=== PATIENT | female | born 1960 | race American Indian/Alaskan Native ===

== ENCOUNTER 2019-11-22 16:50 | Emergency (ER) | payer MEDICARE ==
--- NOTE | 2019-11-22 17:18 | Event Note ---
ED Screening Note Date of service: 11/22/19 Time: 17:13 ED Screening Note: 58 y/o female comes in for chest pain, head feels swollen. right arm. Had a fall on Thursday first time being seen. She is currently on pain management. She has a hx/o chronic pain. This initial assessment/diagnostic orders/clinical plan/treatment(s) is/are subject to change based on patients health status, clinical progression and re- assessment by fellow clinical providers in the ED. Further treatment and workup at subsequent clinical providers discretion. Patient/guardian urged not to elope from the ED as their condition may be serious if not clinically assessed and managed. Initial orders include:
--- NOTE | 2019-11-22 17:59 | XRay Report ---
CHEST 2 VIEWS INDICATION: chest pain and sob.. COMPARISON: None FINDINGS: Support devices: None. Heart: Within normal limits. Lungs/pleura: Minimal streaky right basilar atelectasis versus scarring with otherwise clear lungs. No pneumothorax. Additional findings: None. IMPRESSION: 1. Right lung finding as above. Otherwise unremarkable exam. Signer Name: Oliverio Simpson MD Signed: 11/22/2019 5:55 PM Workstation Name: [id number]
[2019-11-22 18:05] LABS: Basophils # (Auto) 0.1 K/mm3 (0.0-0.1); Basophils % (Auto) 1.1 % (0.0-1.8); Eosinophils % (Auto) 0.3 % (0.0-4.3); Hematocrit 41.5 % (30.3-42.9); Lymphocytes # (Auto) 2.4 K/mm3 (1.2-5.4); Lymphocytes % (Auto) 27.9 % (13.4-35.0); Mean Corpuscular HGB Conc 34 % (30-34); Mean Corpuscular Volume 89 fl (79-97); Monocytes # (Auto) 0.6 K/mm3 (0.0-0.8); Monocytes % (Auto) 7.4 % (0.0-7.3); Platelet Count 292 K/mm3 (140-440); Red Blood Count 4.66 M/mm3 (3.65-5.03); Red Cell Distribution Width 13.8 % (13.2-15.2)
[2019-11-22 18:33] LABS: Albumin 4.4 g/dL (3.9-5); BUN/Creatinine Ratio 10; Blood Urea Nitrogen 7 mg/dL (7-17); Hemolysis Index 97
--- NOTE | 2019-11-22 18:43 | Emergency Department Report ---
ED General Adult HPI - General Chief complaint: Chest Pain Stated complaint: CHEST PAIN, HEADACHE Time Seen by Provider: 11/22/19 17:13 Source: patient, RN notes reviewed Mode of arrival: Ambulatory Limitations: No Limitations - History of Present Illness Initial comments: Primary care doctor: [facility]; Dr. Sahu Cardiology: Dr. 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 This patient is not known to myself previously. She presents to the ER with 2 complaints. Her first complaint is chest wall pain. It is present since Thursday. It moves to the back. Today is Thursday. It worsens with eating and with palpation. It decreases with rest. There is no vomiting, diaphoresis, shortness of breath. Positive cough. Uncertain if she is having mucus production. Denies recent travel, recent surgeries, posterior leg pain and leg swelling. Is not taking aspirin or Plavix, secondary to GI bleed in the past. However, she reports that her tree shear operator in [place], where she was from, did not speci fically inform her or instruct her to hold aspirin and/or Plavix. Her second complaint is headache. The headache is frontal and bitemporal. The headache is intermittent since Thursday. The headache is not described as sudden or thunderclap in nature. It is not described as maximal intensity within an hour. It is not described as the most intense or worst headache of her life. There is no vomiting, no loss of vision, no focal extremity weakness and no numbness, there is no tinnitus. She feels like her bitemporal regions are "swollen." -: Gradual, days(s) Location: head, chest Quality: other Consistency: other Improves with: other Worsens with: other Associated Symptoms: other - Related Data Previous Rx's Medication Instructions Recorded Last Taken Type Acetaminophen [Non-Aspirin Extra 500 mg PO Q6HR PRN #30 tablet 11/23/19 Unknown Rx Strength] Famotidine [Pepcid] 20 mg PO BID #10 tablet 11/23/19 Unknown Rx Ibuprofen [Motrin] 600 mg PO Q8H PRN #30 tablet 02/12/20 Unknown Rx Metoclopramide [Reglan] 10 mg PO QID PRN #30 tablet 11/23/19 Unknown Rx Allergies Allergy/AdvReac Type Severity Reaction Status Date / Time No Known Allergies Allergy Unverified 11/22/19 16:59 ED Review of Systems ROS: Stated complaint: CHEST PAIN, HEADACHE Other details as noted in HPI Constitutional: malaise. denies: diaphoresis Eyes: denies: eye pain, vision change ENT: denies: congestion Respiratory: cough Cardiovascular: chest pain Gastrointestinal: denies: nausea, vomiting, hematemesis, melena, hematochezia Genitourinary: denies: dysuria Musculoskeletal: back pain, myalgia Neurological: headache. denies: weakness, paresthesias, confusion Hematological/Lymphatic: denies: easy bleeding ED Past Medical Hx - Past Medical History Previous Medical History?: Yes Hx Hypertension: Yes Hx Heart Attack/AMI: Yes (with stent placement) Hx COPD: Yes Additional medical history: high cholesterol - Surgical History Past Surgical History?: Yes Hx Coronary Stent: Yes - Social History Smoking Status: Current Some Day Smoker - Medications Home Medications: Home Medications Medication Instructions Recorded Confirmed Last Taken Type Acetaminophen [Non-Aspirin Extra 500 mg PO Q6HR PRN #30 tablet 11/23/19 Unknown Rx Strength] Famotidine [Pepcid] 20 mg PO BID #10 tablet 11/23/19 Unknown Rx Ibuprofen [Motrin] 600 mg PO Q8H PRN #30 tablet 11/23/19 Unknown Rx Metoclopramide [Reglan] 10 mg PO QID PRN #30 tablet 11/23/19 Unknown Rx ED Physical Exam - General Limitations: No Limitations General appearance: alert, anxious - Head Head exam: Present: atraumatic, normocephalic - Eye Eye exam: Present: normal appearance, PERRL, EOMI, other (Visual acuity intact to finger counting, color perception, reading at a close distance). Absent: nystagmus - ENT ENT exam: Present: normal exam, normal orophraynx, mucous membranes moist, normal external ear exam, other (There is note temporal tenderness. There is no mastoid tenderness. No vesicles are noted. Helices are nontender) - Neck Neck exam: Present: normal inspection, full ROM. Absent: tenderness, meningismus, lymphadenopathy, thyromegaly - Respiratory Respiratory exam: Present: normal lung sounds bilaterally, chest wall tenderness. Absent: respiratory distress, wheezes, rales, rhonchi, stridor - Cardiovascular Cardiovascular Exam: Present: normal rhythm, tachycardia, normal heart sounds. Absent: systolic murmur, diastolic murmur, rubs, gallop - GI/Abdominal GI/Abdominal exam: Present: soft. Absent: distended, tenderness, guarding, rebound, rigid, pulsatile mass - Extremities Exam Extremities exam: Present: normal inspection, full ROM, other (2+ pulses noted in the bilateral upper and lower extremities. There is no palpable cord. negative Homans sign. Muscular compartments are soft. The pelvis is stable.). Absent: pedal edema, calf tenderness - Back Exam Back exam: Present: normal inspection, full ROM. Absent: tenderness, CVA tenderness (R), CVA tenderness (L), paraspinal tenderness, vertebral tenderness - Neurological Exam Neurological exam: Present: alert, normal gait, other (There is no facial droop. The tongue is midline. Extraocular movements are intact bilaterally. There is 5 out of 5 strength in bilateral upper and lower extremities. Sensation is intact to light touch bilateral upper and lower extremities. There is no past- pointing. There is no pronator drift. There is normal [id number]. There is a normal gait.). Absent: motor sensory deficit - Psychiatric Psychiatric exam: Present: anxious - Skin Skin exam: Present: warm, dry, intact, normal color. Absent: rash ED Course Vital Signs 11/22/19 11/22/19 11/22/19 17:01 17:21 18:45 Temperature 99.0 F Pulse Rate 114 H 92 H Respiratory 18 16 Rate Blood Pressure 160/80 Blood Pressure 176/111 [Left] O2 Sat by Pulse 99 97 Oximetry 11/22/19 20:20 Temperature Pulse Rate 69 Respiratory 16 Rate Blood Pressure Blood Pressure 137/82 [Left] O2 Sat by Pulse 97 Oximetry - Reevaluation(s) Reevaluation #1: 11/22/19 20:56 Differential diagnosis, including but limited to: Costochondritis, GERD, gastritis, hiatal hernia, pneumonia, acute coronary syndrome, pulmonary embolism, migraine headache, tension headache, cluster headache, intracranial hemorrhage, structural intracranial disease Assessment and plan: 58-year-old female with 2 complaints Complaints #1, chest pain for 3 days. Troponin is negative x2. Tachycardia resolved. EKG nonspecifically abnormal, without prior for comparison. Given initial tachycardia, low-grade temperature, d-dimer ordered, found to be elevated, therefore, CT angiogram chest is ordered. However, patient is low risk pretest probability, and is unlikely to have a pulmonary embolism. Her car diovascular risk factor profile is reviewed and appreciated, as is her heart score, however, given unchanged EKG x2, troponin negative x2 in the context of 3 days of symptoms, the patient is unlikely to benefit from hospitalization for accelerated cardiac risk education. I contacted cardiology on-call, Dr. Mona Johnson, and we discussed the patient's history, physical, laboratory studies and EKG, and he agrees that the patient will be suitable to follow-up in the outpatient office within the next couple days, to complete a cardiac re- stratification, assuming that her ER work-up is unremarkable. We will treat the patient's symptoms. CT scan of the chest is pending at this time. Complaints #2, headache: GCS 15, NIH score of 0, nonfocal neurologic examination. Walking with a steady gait. No neck pain or neck stiffness, and headache is not sudden or thunderclap in nature. This is unlikely to be dangerous etiology of headache. However, given her reported history of blood clot on the brain, we will obtain CT scan of the brain to assess for structural abnormalities. Her exam and history at this point in time are not suggestive of large vessel occlusion, and given her benign examination, this is very unlikely to be venous sinus thrombosis. The history is not consistent with subarachnoid hemorrhage. We will treat her headache symptomatically. As per verbal report from nursing team, patient has already endorsed improvement in her pain symptoms. Reevaluation #2: 11/22/19 22:02 Tachycardia resolved. Patient feels improved. Unable to obtain 20-gauge IV access and antecubital fossa for CT angiogram. Therefore, nuclear medicine study will be ordered. Reevaluation #3: 11/22/19 23:50 Troponin is negative x3. Nuclear medicine study is pending interpretation and acquisition at this time Reevaluation #4: 11/23/19 01:25 Nuclear medicine study is low probability for pulmonary embolism. Patient re sting comfortably 4 hours, troponin negative x3, without clinical decompensation. Please note patient had a prolonged stay in the emergency room, as we were unable to obtain necessary 20-gauge IV access for angiogram acquisition, and the clinical technologist needed to be called in as a study was ordered after hours. Nevertheless, the patient is suitable to follow- up with an outpatient primary care doctor, and/or tree shear operator. ED Medical Decision Making - Lab Data Result diagrams: 11/22/19 17:54 11/22/19 17:54 Vital Signs 11/22/19 11/22/19 17:01 17:21 Temperature 99.0 F Pulse Rate 114 H Respiratory 18 Rate Blood Pressure 160/80 O2 Sat by Pulse 99 Oximetry Lab Results 11/22/19 11/22/19 Range/Units 17:54 17:54 WBC 8.5 (4.5-11.0) K/mm3 RBC 4.66 (3.65-5.03) M/mm3 Hgb 14.0 (10.1-14.3) gm/dl Hct 41.5 (30.3-42.9) % MCV 89 (79-97) fl MCH 30 (28-32) pg MCHC 34 (30-34) % RDW 13.8 (13.2-15.2) % Plt Count 292 (140-440) K/mm3 Lymph % (Auto) 27.9 (13.4-35.0) % [place] % (Auto) 7.4 H (0.0-7.3) % Eos % (Auto) 0.3 (0.0-4.3) % Baso % (Auto) 1.1 (0.0-1.8) % Lymph # 2.4 (1.2-5.4) K/mm3 [place] # 0.6 (0.0-0.8) K/mm3 Eos # 0.0 (0.0-0.4) K/mm3 Baso # 0.1 (0.0-0.1) K/mm3 Seg Neutrophils % 63.3 (40.0-70.0) % Seg Neutrophils # 5.4 (1.8-7.7) K/mm3 Sodium 143 (137-145) mmol/L Potassium 4.2 (3.6-5.0) mmol/L Chloride 103.6 (98-107) mmol/L Carbon Dioxide 22 (22-30) mmol/L Anion Gap 22 mmol/L BUN 7 (7-17) mg/dL Creatinine 0.7 (0.7-1.2) mg/dL Estimated GFR > 60 ml/min BUN/Creatinine Ratio 10 % Glucose 88 (65-100) mg/dL Calcium 10.0 (8.4-10.2) mg/dL Total Bilirubin 0.30 (0.1-1.2) mg/dL Alkaline Phosphatase 111 (35-129) units/L Total Protein 8.3 H (6.3-8.2) g/dL Albumin 4.4 (3.9-5) g/dL Albumin/Globulin Ratio 1.1 % - EKG Data -: EKG Interpreted by Ut EKG shows normal: sinus rhythm Rate: normal - EKG Data When compared to previous EKG there are: previous EKG unavailable 11/22/19 20:59 There is no prior EKG available for comparison. EKG #1 shows a sinus tachycardia, with a normal axis, the QTC is 427 ms, there is left ventricular hypertrophy, there is atrial enlargement, nonspecific T wave abnormalities, no prior for comparison, not a STEMI EKG #2 shows a sinus rhythm, 81 bpm, there is a normal axis, the QTc is 445 ms, there is left ventricular hypertrophy, it is not consistent with a STEMI. - Radiology Data Radiology results: report reviewed, image reviewed Print Report Referring Physician: ANTHONY AYALA Patient Name: TYREL HOUSTON Date of : 1960 Sex: Female Report Date: 2019-11-22 Report Status: Finalized Findings [address] [address] XRay Report Signed Patient: TYREL HOUSTON MR#: [id number] : 1960 Acct:[id number] Age/Sex: 58 / F ADM Date: 11/22/19 Loc: ED Attending Dr: Ordering Physician: ALEXANDRA CRUZ Date of Service: 11/22/19 Procedure(s): XR chest routine 2V Accession Number(s): [id number] cc: ALEXANDRA CRUZ Fluoro Time In Minutes: CHEST 2 VIEWS INDICATION: chest pain and sob.. COMPARISON: None FINDINGS: Support devices: None. Heart: Within normal limits. Lungs/pleura: Minimal streaky right basilar atelectasis versus scarring with otherwise clear lungs. No pneumothorax. Additional findings: None. IMPRESSION: 1. Right lung finding as above. Otherwise unremarkable exam. Signer Name: Oliverio Simpson MD Signed: 11/22/2019 5:55 PM Workstation Name: [id number] Transcribed By: JUAN R Dictated By: Oliverio Simpson MD Electronically Authenticated By: Oliverio Simpson MD Signed Date/Time: 11/22/19 8568 Critical care attestation.: If time is entered above; I have spent that time in minutes in the direct care of this critically ill patient, excluding procedure time. ED Disposition Clinical Impression: Chest wall pain, Headache Disposition: - TO HOME OR SELFCARE Is pt being admited?: No Does the pt Need Aspirin: No Condition: Stable Additional Instructions: Continue current outpatient medications, take the prescribed pain medications as needed and directed. Recommend follow-up with outpatient cardiology within the next 3 to 5 days. We have contacted covering cardiology, Dr. Johnson, and we would like you to contact Dr. Lobato, your scheduled tree shear operator office, first thing in the morning, to arrange close outpatient follow-up. When contacting the office, please make certain to let the office know that you were seen here in the emergency room for chest pain, and that the ER physician and Dr. Johnson would like you to have close outpatient follow-up in the cardiology office. Take the pain medications as needed and directed, avoid consumption of alcohol in conjunction with sedating medications, please return to the emergency room right away with new, worsened or different symptoms, or symptoms not present on the initial emergency room evaluation. Participate in physical activities as tolerated, rest, and avoid heavy lifting. Referrals: SHAYAN LOBATO MD [Staff Physician] - 3-5 Days HERNANDEZ SAHU MD [Referring] - 3-5 Days
[2019-11-22 18:50] LABS: Alanine Aminotransferase 17 units/L (7-56)
[2019-11-22] MEDS ORDERED: ACETAMINOPHEN 325 MG TAB PO STA (18:59)
[2019-11-22] MEDS ORDERED: diphenhydrAMINE 50 MG/ML VIAL IV ONE (18:59)
[2019-11-22] MEDS ORDERED: LIDOCAINE (4%) 40 MG/ML TOPICAL SOLN 50 ML BOTTLE TP ONE (18:59)
[2019-11-22] MEDS ORDERED: SODIUM CHLORIDE 0.9% 1000 ML 1,000 ML IV ONE (18:59)
[2019-11-22] MEDS ORDERED: FAMOTIDINE 20 MG/2 ML INJ IV ONE (18:59)
[2019-11-22] MEDS ORDERED: METOCLOPRAMIDE 10 MG/2 ML INJ IV ONE (18:59)
[2019-11-22] MEDS ORDERED: HYDROmorphone 1 MG/1 ML INJ IV ONE (19:05)
[2019-11-22 19:53] LABS: INR 0.96 (0.87-1.13)
[2019-11-22 19:54] LABS: Partial Thromboplastin Time 37.6 Sec. (24.2-36.6)
[2019-11-22 20:37] VITALS: BP 137/82
--- NOTE | 2019-11-22 20:55 | Cat Scan Report ---
CT head/brain wo con INDICATION: Headache. TECHNIQUE: Routine CT head without contrast. All CT scans at this location are performed using CT dos e reduction for ALARA by means of automated exposure control. COMPARISON: None. FINDINGS: BRAIN / INTRACRANIAL CONTENTS: No acute hemorrhage, mass effect, midline shift, or hydrocephalus. No appreciable acute large territorial or lacunar infarct. There is a chronic lacunar infarct in the rig ht gangliocapsular region. ORBITS: No significant abnormality of visualized orbits. SINUSES / MASTOIDS: No significant abnormality of visualized sinuses and mastoid air cells. ADDITIONAL FINDINGS: None. IMPRESSION: 1. No acute intracranial abnormality. Signer Name: Deon Wen MD Signed: 11/22/2019 8:51 PM Workstation Name: [id number]
[2019-11-22] MEDS ORDERED: traMADol 50 MG TAB ONE (23:47)
[2019-11-22] MEDS: traMADol 50 MG TAB PO ONE (23:50)
--- NOTE | 2019-11-23 01:18 | Nuclear Medicine Report ---
NUCLEAR MEDICINE VENTILATION/PERFUSION LUNG SCAN INDICATION: Chest pain. Elevated d-dimer. TECHNIQUE: 10 mCi of Xe-133 were given by inhalation. 5.2 mCi of Tc-99m MAA were given by IV. COMPARISON: Chest radiographs dated 11/22/2019. FINDINGS: VENTILATION: No significant ventilation defects. PERFUSION: No significant perfusion defects. ADDITIONAL FINDINGS: None. IMPRESSION: 1. Low probability for pulmonary embolism. Signer Name: Omkar Fuchs MD Signed: 11/23/2019 1:14 AM Workstation Name: [id number]
[2019-11-23] MEDS ORDERED: KETOROLAC 30 MG/1 ML INJ IV ONE (01:40)
[2019-11-23] MEDS ORDERED: KETOROLAC 30 MG/1 ML INJ ONE (01:43)
[2019-11-23] MEDS: traMADol 50 MG TAB PO ONE (06:10)
== END 2019-11-23 02:15 | disposition home or self-care (01) ==
LOC: ED 16:50
DX: R07.89 Other chest pain (principal); R51 Headache; I10 Essential (primary) hypertension; I25.2 Old myocardial infarction; E78.00 Pure hypercholesterolemia, unspecified; F17.200 Nicotine dependence, unspecified, uncomplicated; Z95.5 Presence of coronary angioplasty implant and graft; Z79.899 Other long term (current) drug therapy
CPT/HCPCS: 36415; 70450; 71046; 78582; 80053; 82550; 83735; 84484; 85025; 85379; 85610; 85730; 93005; 93010; 96374; 96375; 99285; A9540; A9558; J1170; J1200; J1885; J2765; J7030